=== PATIENT | female | born 1955 | race Two or more races ===

== ENCOUNTER 2024-05-05 10:55 | Day surgery (SDC) | payer MEDICARE, MEDICAID, SELFPAY ==
[2024-05-04 14:36] VITALS: BMI 26.5
[2024-05-05] VITALS (7 sets, daily range): BP systolic 109–155; BP diastolic 67–95; PULSE 64–79; RESP 15–18; TEMP 36.7–36.8; O2SAT 96–100; BMI 27.2
--- NOTE | 2024-05-05 10:31 | EKG_ITS ---
[facility] Test Date: 2024-05-05 Pat Name: GABE ANTHONY Department: Room: - Gender: Female Conventional Machinist: VALENCIA : 1955 Requested By: Patrick Harden Order Number: [id number] Reading MD: Patrick Harden Measurements Intervals [place] Rate: 72 P: 30 NM: 141 QRS: -33 QRSD: 117 T: 47 QT: 391 QTc: 429 Interpretive Statements SINUS RHYTHM MARKED LEFT AXIS DEVIATION VOLTAGE CRITERIA FOR LVH POSSIBLE LATERAL MYOCARDIAL INFARCTION , PROBABLY OLD No previous ECG available for comparison /[id number]
[2024-05-05 12:26] LABS: Alanine Aminotransferase 33 U/L (10-49); Albumin, Serum 4.8 gm/dL (3.4-4.8); Albumin/Globulin Ratio 1.7 (1.2-2.2); Alkaline Phosphatase 146 U/L (46-116); Anion Gap 11 (7-16); Aspartate Amino Transferase 29 U/L (0-34); BUN/Creatinine Ratio 22 Ratio (12-20); Bilirubin,Total 0.4 mg/dL (0.3-1.2); Blood Urea Nitrogen 29 mg/dL (9-23); Carbon Dioxide 24.8 mMol/L (20.0-31.0); Chloride 101 mMol/L (98-107); Creatinine (Component) 1.3 mg/dL (0.6-1.3); Estimated Creatinine Clearance 36.3 mL/min (>60); Globulin 2.8 gm/dL (2.3-3.5); Glucose 194 mg/dL (74-106); Osmolality,Calculated 284 (275-295); Potassium 4.1 mMol/L (3.4-5.1); Sodium 137 mMol/L (136-145); Total Protein 7.6 gm/dL (5.7-8.2); eGFR 45 See Note
[2024-05-05] MEDS: RINGERS LACTATED 500 ML 500 ML 20 ML IV (14:05)
--- NOTE | 2024-05-05 14:45 | SUR.PHASEII ---
[id number] patient arrived to recovery, report received from Nan CORONADO
--- NOTE | 2024-05-05 15:49 | SUR.PHASEII ---
1549 Patient meets discharge criteria from recovery, awake and alert, breathing unlabored, vital signs stable, denies pain and nausea, patient ate a jello and drinking water; tolerating well, patient able to dress herself into her clothing, patient signed limited proficiency statement for her daughter to resistance machine welder setter German to her, discharge instructions given to patient and patients daughter, with patients daughter resistance machine welder setter to her mother, daughter signed discharge instructions. Patient given all her belongings prior to discharge, transported via wheelchair and left in a private vehicle.
== END 2024-05-05 15:49 | disposition home or self-care (01) ==
PROVIDERS: Anesthesiology; PCP Internal Medicine; Referring Provider Internal Medicine Gastroenterology; Visit Provider Internal Medicine Gastroenterology
PROC: 0DJD8ZZ Inspection of Lower Intestinal Tract, Via Natural or Artificial Opening Endoscopic (ICD-10-PCS; CPT 45378; principal; 2024-05-05 12:45)
PROC: (CPT 43239; 2024-05-05 12:45)
DX: K64.0 First degree hemorrhoids (principal); K63.89 Other specified diseases of intestine; D50.9 Iron deficiency anemia, unspecified; K52.9 Noninfective gastroenteritis and colitis, unspecified; I10 Essential (primary) hypertension; Z01.810 Encounter for preprocedural cardiovascular examination
CPT/HCPCS: 45385; 45380; 45381; 36415; 80053; 93005; A4217; A4649; J2250; J2704; J3010; J7120